=== PATIENT | female | born 1945 ===

== ENCOUNTER 2018-08-06 10:46 | Outpatient (CLI) | payer OTHER | END 2018-08-06 10:51 | disposition home or self-care (01) | LOC: MAMO-SONO 10:46 | DX: Z12.31 Encounter for screening mammogram for malignant neoplasm of breast (principal); Z87.898 Personal history of other specified conditions; N61.0 Mastitis without abscess ==

== ENCOUNTER 2018-09-01 10:56 | Outpatient (CLI) | payer OTHER | END 2018-09-01 11:02 | disposition home or self-care (01) | LOC: NUCLEAR 10:56 | DX: M81.0 Age-related osteoporosis without current pathological fracture (principal) ==

== ENCOUNTER → 2020-05-24 | Outpatient (CLI) | payer OTHER | END | disposition home or self-care (01) | LOC: MAMO-SONO 10:36 | PROVIDERS: ATTEND General Practice | DX: Z12.31 Encounter for screening mammogram for malignant neoplasm of breast (principal); N61.1 Abscess of the breast and nipple ==

== ENCOUNTER 2021-06-02 13:46 | Outpatient (CLI) | payer OTHER | END 2021-06-02 13:47 | disposition home or self-care (01) | LOC: NUCLEAR 13:46 | DX: M81.0 Age-related osteoporosis without current pathological fracture (principal) ==

== ENCOUNTER 2022-01-18 11:32 | Outpatient (CLI) | payer OTHER | END 2022-01-18 11:38 | disposition home or self-care (01) | LOC: MAMO-SONO 11:32 | PROVIDERS: ATTEND General Practice | DX: Z12.31 Encounter for screening mammogram for malignant neoplasm of breast (principal) ==

== ENCOUNTER 2024-01-14 09:27 | Outpatient (CLI) | payer OTHER | END 2024-01-14 09:35 | disposition home or self-care (01) | LOC: MAMO-SONO 09:27 | PROVIDERS: ATTEND General Practice | DX: Z12.31 Encounter for screening mammogram for malignant neoplasm of breast (principal); Z12.39 Encounter for other screening for malignant neoplasm of breast ==

== ENCOUNTER 2025-04-30 09:46 | Outpatient (CLI) | payer OTHER | END 2025-04-30 09:48 | disposition home or self-care (01) | LOC: SONOGRAMA 09:46 | PROVIDERS: ATTEND Internal Medicine | DX: E04.2 Nontoxic multinodular goiter (principal) ==

== ENCOUNTER 2025-07-30 14:25 | Outpatient (CLI) | payer OTHER | END 2025-07-30 15:00 | disposition home or self-care (01) | LOC: MAMO-SONO 14:25 | DX: J45.909 Unspecified asthma, uncomplicated (principal); J42 Unspecified chronic bronchitis; Z12.31 Encounter for screening mammogram for malignant neoplasm of breast; Z12.39 Encounter for other screening for malignant neoplasm of breast ==